=== PATIENT | male | born 1940 | race Caucasian/White ===

== ENCOUNTER → 2023-08-14 | Outpatient (CLI) | payer MEDICARE, BC | LOC: RAD 15:46 | DX: S12.000A Unspecified displaced fracture of first cervical vertebra, initial encounter for closed fracture (principal); S12.100A Unspecified displaced fracture of second cervical vertebra, initial encounter for closed fracture; X58.XXXA Exposure to other specified factors, initial encounter ==

== ENCOUNTER → 2023-09-11 | Outpatient (CLI) | payer MEDICARE, BC | LOC: RAD 10:08 | DX: S12.031A Nondisplaced posterior arch fracture of first cervical vertebra, initial encounter for closed fracture (principal); S12.100A Unspecified displaced fracture of second cervical vertebra, initial encounter for closed fracture; X58.XXXA Exposure to other specified factors, initial encounter ==

== ENCOUNTER → 2024-02-14 | Outpatient (CLI) | payer MEDICARE, BC ==
[2024-02-14 15:51] LABS: ALBUMIN 3.7 g/dL (3.4-4.8)
[2024-02-14 15:52] LABS: CALCIUM 8.9 mg/dL (8.3-10.5)
[2024-02-14 15:53] LABS: TOTAL PROTEIN 6.6 g/dL (6.2-8.1)
[2024-02-14 15:55] LABS: TOTAL BILIRUBIN 0.6 mg/dL (0.2-1.2)
== END ==
LOC: LAB 15:18
PROVIDERS: Family Medicine
DX: E11.42 Type 2 diabetes mellitus with diabetic polyneuropathy (principal)